=== PATIENT | female | born 1985 | race Caucasian/White ===

== ENCOUNTER 2017-04-01 17:00 | Emergency (ER) | payer MEDICAID ==
--- NOTE | 2017-04-01 17:17 | EDPHY ---
H & P Stated Complaint: M1 - Personal History LMP (Females 10-55): 1-7 Days Ago Current Tetanus Diphtheria and Acellular Pertussis (TDAP): Unsure - Medical/Surgical History Hx Asthma: No Hx Chronic Respiratory Disease: No Hx Diabetes: No Hx Cardiac Disease: No Hx Renal Disease: No Hx Cirrhosis: No Hx Alcoholism: Yes Hx HIV/AIDS: No Hx Splenectomy or Spleen Trauma: No Other PMH: alcoholism, unspecified dissociative disorder, delivered baby 5 wks ago (october 2015). PTSD - Social History Smoking Status: Former smoker Time Seen by Provider: 04/01/17 17:01 HPI/ROS: CHIEF COMPLAINT: Suicidal ideation, homicidal ideation HISTORY OF PRESENT ILLNESS: 32-year-old female psychiatric history notable for dissociative identity disorder, PTSD, alcohol dependence, arrives on M1 hold after endorsing suicidal and homicidal ideations, visual and auditory hallucinations, has not report for daily monitor medications. This is per the M1 report. In discussion with the patient she states that she is not experiencing suicidal or homicidal ideations. Does states that she has not felt taking medications been off them for some time. Admits to alcohol use most recently yesterday. Denies self-injury. Denies suicidal homicidal ideation. REVIEW OF SYSTEMS: A ten point review of systems was performed and is negative with the exception of the items mentioned in the HPI PAST MEDICAL & SURGICAL HISTORY: Dissociative identity disorder, PTSD, alcohol dependence SOCIAL HISTORY:alcohol use most recently yesterday PHYSICAL EXAM (Prior to examination, patient consented to physical exam, hands were washed and my usual and customary physical exam procedures followed) 1) GENERAL: Well-developed, well-nourished, alert and oriented. Appears to be in no acute distress. 2) HEAD: Normocephalic, atraumatic 3) HEENT: Pupils equal, round, reactive to light bilaterally. Sclera anicteric. 4) NECK: Full range of motion, no meningeal signs. 5) LUNGS: Clear auscultation bilaterally, no wheezes, no rhonchi, no retractions. 6) HEART: Regular rate and rhythm, no murmur, no heave, no gallop. 7) ABDOMEN: No guarding, no rebound, no focal tenderness, negative McBurney', 8) MUSCULOSKELETAL: signs of injury No peripheral edema or discoloration. 9) BACK: no visual or palpable abnormality. 10) SKIN: No rash, no petechiae. DIFFERENTIAL DIAGNOSIS: no particular include but limited to suicidal ideation , homicidal ideation, depression. (Kassie Christie) Constitutional: Initial Vital Signs Temperature (C) 37.1 C 04/01/17 17:00 Heart Rate 77 04/01/17 17:00 Respiratory Rate 18 04/01/17 17:00 Blood Pressure 120/77 04/01/17 17:00 O2 Sat (%) 90 L 04/01/17 17:00 O2 Delivery Mode Room Air Allergies/Adverse Reactions: No Known Allergies Allergy (Unverified 12/15/15 12:45) Home Medications: Medication Instructions Recorded ARIPiprazole [Abilify] 10 mg PO DAILY 12/15/15 FLUoxetine [Prozac] 20 mg PO DAILY 12/15/15 traZODone [traZODONE 100MG (*)] 100 mg PO 12/15/15 Haldol 04/01/17 Naltrexone HCl 04/01/17 clonIDINE 04/01/17 Medical Decision Making ED Course/Re-evaluation: 1:45am- I received sign out on this patient from BRYN Christie at approximately 12:00am. The patient has just completed mental health eval. Ileana would like to seek placement at ATU for the patient to be stablized on meds. The mental health team will start to look for placement. (Leann Lubin) Other Provider: Care assumed at 6:37 a.m. with plan for ATU placement. The patient will be transferred to [facility] for [inpatient psychiatric hospital bed] not available at this facility, in stable condition; accepting physician is Dr. kebede. (Oscar Bergman) - Data Points Laboratory Results: Laboratory Results 04/01/17 17:45 04/01/17 17:45 Medications Given: Discontinued Medications Haloperidol (Haldol) 0.5 mg PO ONCE ONE Stop: 04/02/17 01:50 Last Admin: 04/02/17 10:09 Dose: 0.5 mg Haloperidol (Haldol) 0.5 mg PO ONCE ONE Stop: 04/02/17 09:32 Last Admin: 04/02/17 10:12 Dose: 0.5 mg Lorazepam (Ativan) 1 mg PO EDNOW ONE Stop: 04/02/17 12:25 Last Admin: 04/02/17 12:32 Dose: 1 mg Departure - Departure Disposition: Other Psych, Not Nancy Clinical Impression: History of posttraumatic stress disorder (PTSD), Suicidal ideation Condition: Good Referrals: Patient,NotPresent [Unknown] - As per Instructions
[2017-04-01 17:54] LABS: % IMMATURE GRANULYOCYTES 0.3 % (0.0-1.1); ABSOLUTE IMMATURE GRANULOCYTES 0.03 10^3/uL (0.00-0.10); ADD DIFF? NO; ADD MORPH? NO; ADD SCAN? NO; ATYPICAL LYMPHOCYTE FLAG 0 (0-99); FRAGMENT RBC FLAG 0 (0-99); HEMATOCRIT 43.5 % (38.0-47.0); HEMOGLOBIN 15.1 g/dL (12.6-16.3); LEFT SHIFT FLG 0 (0-99); LIPEMIA HEMOLYSIS FLAG 90 (0-99); MEAN CELL HEMOGLOBIN 30.9 pg (27.9-34.1); MEAN CELL HEMOGLOBIN CONCENTR. 34.7 g/dL (32.4-36.7); PLATELET CLUMPS FLAG 0 (0-99); PLATELET COUNT 268 10^3/uL (150-400); RED BLOOD CELL COUNT 4.89 10^6/uL (4.18-5.33); RED CELL DISTRIBUTION WIDTH 12.9 % (11.5-15.2)
[2017-04-01 18:15] LABS: ANION GAP 14 mEq/L (8-16); CALCIUM 9.5 mg/dL (8.5-10.4); CARBON DIOXIDE 19 mEq/l (22-31); CHLORIDE 110 mEq/L (97-110); CREATININE 0.9 mg/dL (0.6-1.0); ETHANOL SERUM < 10 mg/dL (0-10); GLOMERULAR FILTRATION RATE > 60; GLUCOSE 73 mg/dL (70-100); POTASSIUM 3.7 mEq/L (3.5-5.2); SALICYLATE < 1.0 mg/dL (2.0-20.0); SODIUM 143 mEq/L (134-144)
[2017-04-02] MEDS: HALOPERIDOL 0.5 MG TAB PO ONE ×2 (02:32→10:09)
[2017-04-02] MEDS ORDERED: HALOPERIDOL 0.5 MG TAB PO ONE (09:31)
[2017-04-02] MEDS ORDERED: LORazepam 1 MG TAB PO ONE (12:24)
[2017-04-02 16:03] VITALS: PULSE 81
[2017-04-02] MEDS ORDERED: LORazepam 0.5 MG TAB PO ONE (16:47)
[2017-04-02 17:15] VITALS: BP 135/78; RESP 16; TEMP 97.7; O2SAT 98
== END 2017-04-02 17:13 ==
LOC: EDUNIT# → EEVIPCON 17:00
DX: R45.851 Suicidal ideations (principal); Z86.59 Personal history of other mental and behavioral disorders; Z87.891 Personal history of nicotine dependence
CPT/HCPCS: 80305; G0480

== ENCOUNTER 2017-05-14 13:36 | Emergency (ER) | payer MEDICAID ==
--- NOTE | 2017-05-14 15:13 | EDPHY ---
H & P Stated Complaint: BILATERAL FLANK PAIN, WORSE ON LEFT. RECENT UTI Time Seen by Provider: 05/14/17 15:13 - Personal History LMP (Females 10-55): 22-28 Days Ago Current Tetanus/Diphtheria Vaccine: Yes Current Tetanus Diphtheria and Acellular Pertussis (TDAP): Yes - Medical/Surgical History Hx Asthma: No Hx Chronic Respiratory Disease: No Hx Diabetes: No Hx Cardiac Disease: No Hx Renal Disease: No Hx Cirrhosis: No Hx Alcoholism: Yes Hx HIV/AIDS: No Hx Splenectomy or Spleen Trauma: No Other PMH: alcoholism, unspecified dissociative disorder, delivered baby 5 wks ago (october 2015). PTSD - Social History Smoking Status: Former smoker Constitutional: Initial Vital Signs Temperature (C) 36.9 C 05/14/17 13:54 Heart Rate 77 05/14/17 13:54 Respiratory Rate 18 05/14/17 13:54 Blood Pressure 159/107 H 05/14/17 13:54 O2 Sat (%) 96 05/14/17 13:54 O2 Delivery Mode Room Air Allergies/Adverse Reactions: No Known Allergies Allergy (Unverified 12/15/15 12:45) Home Medications: Medication Instructions Recorded ARIPiprazole [Abilify] 10 mg PO DAILY 12/15/15 FLUoxetine [Prozac] 20 mg PO DAILY 12/15/15 traZODone [traZODONE 100MG (*)] 100 mg PO 12/15/15 Haldol 04/01/17 Naltrexone HCl 04/01/17 clonIDINE 04/01/17 Cephalexin [Keflex (RX)] 500 mg PO TID #30 cap 05/14/17 Medical Decision Making - Diagnostics Imaging Results: Imaging Impressions Abdomen/Pelvis CT 05/14/17 15:53 Impression: 1. Moderate stool in the proximal colon. 2. 3.1-cm right breast mass. Diagnostic mammography and ultrasound are recommended for further evaluation if this has not been previously assessed. 3. Lung nodules measuring up to 4 mm. If the patient is a smoker or is high risk , unenhanced low dose chest CT for follow up in 12 months is considered optional. Otherwise, no further follow up is needed per Fleischner Society criteria. 4. Additional findings as above. Findings discussed with Minor Guerrero MD 05/14/2017, at 1702 hours. Attention: This CT examination is specifically designed to evaluate patients who are clinically suspected of having acute obstructive uropathy. This examination does not use radiographic contrast, and as such, provides only a limited evaluation of the abdomen, pelvis and retroperitoneum. If there is further clinical suspicion for pathologic conditions other than obstructive uropathy, a complete CT evaluation of the abdomen and pelvis utilizing intravenous and oral contrast should be considered. Imaging: Discussed imaging studies w/ call box wirer Radiologist, I viewed and interpreted images myself ED Course/Re-evaluation: CHIEF COMPLAINT: Left flank pain HISTORY OF PRESENT ILLNESS: The patient is a 32 y/o female who complains of left flank pain that radiates towards her groin. She has a history of 3 prior kidney stones, which all passed on their own. The pain today feels the same to her prior kidney stones. She believes she passed a small stone several days ago. Yesterday, she visited her doctor who found blood in her urine. Denies vomiting, nausea, chest pain, weakness, numbness or other pertinent REVIEW OF SYSTEMS: A 10 point review of systems was performed and is negative with the exception of the elements mentioned in the history of present illness. PHYSICAL EXAM: HR, BP, O2 Sat, RR. Temp noted General Appearance: Alert, well hydrated, appropriate, and non-toxic appearing. Head: Atraumatic without scalp tenderness or obvious injury Eyes: Pupils equal, round, reactive to light and accommodation, EOMI, no trauma , no injection. Ears: Clear bilaterally, no perforation, normal landmarks Nose: Atraumatic, no rhinorrhea, clear. Throat: Mucus membranes moist. Neck: Supple, nontender, no lymphadenopathy. Respiratory: No retractions, no distress, no wheezes, and no accessory muscle use. Lungs are clear to auscultation bilaterally. Cardiovascular: Regular rate and rhythm, no murmurs, rubs, or gallops. Good capillary refill all extremities. Gastrointestinal: Left flank pain radiating towards groin. Abdomen is soft, nontender, non-distended, no masses, no rebound, no guarding, no peritoneal signs. Musculoskeletal: Normal active ROM of all extremities, atraumatic. Neurological: Fine motor tremor. Alert, appropriate, and interactive. Non- focal neuro. Skin: No rashes, good turgor, no nodules on palpation. Past medical history: 3 Kidney stones, PTSD, alcoholism Past surgical history: Denies Family history: Noncontributory Social history: Lives in [place], , former smoker DIAGNOSTICS/PROCEDURES/CRITICAL CARE TIME: Abdominal CT: Negative for a kidney stone. There was an additional finding of a mass in her left breast that will need further outpatient workup. DIFFERENTIAL DIAGNOSIS: The differential diagnosis for the patient's abdominal pain included but was not limited to ovarian cyst, pelvic inflammatory disease, ovarian torsion, urinary tract infection, ectopic , cholecystitis, and appendicitis. MEDICAL DECISION MAKING: The patient is a 32 y/o female who presents with left abdominal pain that radiates towards her groin. She also has a fine motor tremor most likely secondary to her anti-psychotics. Plan on abdominal CT, labs, IV, 1L NS IV, 0.5mgIV Dilaudid, 30mg IV Ketoralac, and 4mg IV Zofran. 1810: Reassessed patient and discussed laboratory and imaging findings. She will be prescribed Keflex for her UTI. I have recommended that she follows up with her primary care provider regarding the mass in her left breast. Return precautions discussed; patient is comfortable with this plan. - Data Points Laboratory Results: Laboratory Results 05/14/17 16:05 05/14/17 16:05 05/14/17 05/14/17 05/14/17 17:20 16:05 16:05 WBC RBC Hgb Hct MCV MCH MCHC RDW Plt Count MPV Neut % (Auto) Lymph % (Auto) [place]ell % (Auto) Eos % (Auto) Baso % (Auto) Nucleat RBC Rel Count Absolute Neuts (auto) Absolute Lymphs (auto) Absolute Monos (auto) Absolute Eos (auto) Absolute Basos (auto) Absolute Nucleated RBC Immature Gran % Immature Gran # Sodium 141 mEq/L mEq/L (134-144) Potassium 3.8 mEq/L mEq/L (3.5-5.2) Chloride 104 mEq/L mEq/L (97-110) Carbon Dioxide 23 mEq/l mEq/l (22-31) Anion Gap 14 mEq/L mEq/L (8-16) BUN 14 mg/dL mg/dL (7-23) Creatinine 1.1 mg/dL H mg/dL (0.6-1.0) Estimated GFR 57 Glucose 85 mg/dL mg/dL (70-100) Calcium 10.0 mg/dL mg/dL (8.5-10.4) Beta HCG, Qual NEGATIVE Urine Color PALE YELLOW Urine Appearance CLEAR Urine pH 6.0 (5.0-7.5) Ur Specific [place] 1.006 (1.002-1.030) Urine Protein NEGATIVE (NEGATIVE) Urine Ketones NEGATIVE (NEGATIVE) Urine Blood 1+ H (NEGATIVE) Urine Nitrate NEGATIVE (NEGATIVE) Urine Bilirubin NEGATIVE (NEGATIVE) Urine Urobilinogen NEGATIVE EU EU (0.2-1.0) Ur Leukocyte Esterase 2+ H (NEGATIVE) Urine RBC 3-5 /hpf H /hpf (0-3) Urine WBC 15-25 /hpf H /hpf (0-3) Ur Epithelial Cells TRACE /lpf /lpf (NONE-1+) Urine Bacteria TRACE /hpf H /hpf (NONE SEEN) Urine Glucose NEGATIVE (NEGATIVE) 05/14/17 16:05 WBC 9.03 10^3/uL 10^3/uL (3.80-9.50) RBC 5.29 10^6/uL 10^6/uL (4.18-5.33) Hgb 16.3 g/dL g/dL (12.6-16.3) Hct 47.2 % H % (38.0-47.0) MCV 89.2 fL fL (81.5-99.8) MCH 30.8 pg pg (27.9-34.1) MCHC 34.5 g/dL g/dL (32.4-36.7) RDW 12.8 % % (11.5-15.2) Plt Count 258 10^3/uL 10^3/uL (150-400) MPV 10.3 fL fL (8.7-11.7) Neut % (Auto) 68.3 % % (39.3-74.2) Lymph % (Auto) 21.8 % % (15.0-45.0) Cabell % (Auto) 6.4 % % (4.5-13.0) Eos % (Auto) 2.3 % % (0.6-7.6) Baso % (Auto) 0.9 % % (0.3-1.7) Nucleat RBC Rel Count 0.0 % % (0.0-0.2) Absolute Neuts (auto) 6.16 10^3/uL 10^3/uL (1.70-6.50) Absolute Lymphs (auto) 1.97 10^3/uL 10^3/uL (1.00-3.00) Absolute Monos (auto) 0.58 10^3/uL 10^3/uL (0.30-0.80) Absolute Eos (auto) 0.21 10^3/uL 10^3/uL (0.03-0.40) Absolute Basos (auto) 0.08 10^3/uL 10^3/uL (0.02-0.10) Absolute Nucleated RBC 0.00 10^3/uL 10^3/uL (0-0.01) Immature Gran % 0.3 % % (0.0-1.1) Immature Gran # 0.03 10^3/uL 10^3/uL (0.00-0.10) Sodium Potassium Chloride Carbon Dioxide Anion Gap BUN Creatinine Estimated GFR Glucose Calcium Beta HCG, Qual Urine Color Urine Appearance Urine pH Ur Specific [place] Urine Protein Urine Ketones Urine Blood Urine Nitrate Urine Bilirubin Urine Urobilinogen Ur Leukocyte Esterase Urine RBC Urine WBC Ur Epithelial Cells Urine Bacteria Urine Glucose Medications Given: Discontinued Medications Hydromorphone HCl (Dilaudid) 1 mg IVP EDNOW ONE Stop: 05/14/17 15:28 Last Admin: 05/14/17 16:09 Dose: 1 mg Sodium Chloride (Ns) 1,000 mls @ 0 mls/hr IV EDNOW ONE; Wide Open PRN Reason: Protocol Stop: 05/14/17 15:28 Last Admin: 05/14/17 16:06 Dose: 1,000 mls Ketorolac Tromethamine (Toradol) 30 mg IVP EDNOW ONE Stop: 05/14/17 15:28 Last Admin: 05/14/17 16:07 Dose: 30 mg Ondansetron HCl (Zofran) 4 mg IVP EDNOW ONE Stop: 05/14/17 15:28 Last Admin: 05/14/17 16:07 Dose: 4 mg Departure - Departure Disposition: Home, Routine, Self-Care Clinical Impression: Urinary tract infection Qualifiers: Urinary tract infection type: site unspecified Hematuria presence: with hematuria Qualified Code(s): N39.0 - Urinary tract infection, site not specified Condition: Good Instructions: Cephalexin (By mouth), Urinary Tract Infection in Women (ED) Additional Instructions: 1. Take Keflex as prescribed. 2. Followup with your primary care provider within one week. You should also follow up with your primary care provider regarding the mass found in your left breast. 3. Return to the emergency apartment for fever, severe pain, inability to urinate or other concerns. Referrals: Kennedy Seymour MD [Medical Doctor] - As per Instructions Constantine Parikh MD [[facility] Primary Care Provider] - As per Instructions Prescriptions: Cephalexin [Keflex (RX)] 500 mg PO TID #30 cap Report Scribed for: Minor Guerrero Report Scribed by: Odessa Akers Date of Report: 05/14/17 Time of Report: 15:23
[2017-05-14] MEDS ORDERED: KETOROLAC 30 MG/1 ML SDV IVP ONE (15:27)
[2017-05-14] MEDS ORDERED: HYDROmorphONE/DILAUDID 1 MG/ML INJ IVP ONE (15:27)
[2017-05-14] MEDS ORDERED: ONDANSETRON 4 MG/2 ML VIAL IVP ONE (15:27)
[2017-05-14] MEDS ORDERED: NS 1,000 ML IV ONE (15:27)
[2017-05-14 16:18] LABS: % IMMATURE GRANULYOCYTES 0.3 % (0.0-1.1); ABSOLUTE IMMATURE GRANULOCYTES 0.03 10^3/uL (0.00-0.10); ADD DIFF? NO; ADD MORPH? NO; ADD SCAN? NO; ATYPICAL LYMPHOCYTE FLAG 10 (0-99); FRAGMENT RBC FLAG 0 (0-99); HEMATOCRIT 47.2 % (38.0-47.0); HEMOGLOBIN 16.3 g/dL (12.6-16.3); LEFT SHIFT FLG 0 (0-99); LIPEMIA HEMOLYSIS FLAG 90 (0-99); MEAN CELL HEMOGLOBIN 30.8 pg (27.9-34.1); MEAN CELL HEMOGLOBIN CONCENTR. 34.5 g/dL (32.4-36.7); MEAN CELL VOLUME 89.2 fL (81.5-99.8); MEAN PLATELET VOLUME 10.3 fL (8.7-11.7); PLATELET CLUMPS FLAG 0 (0-99); PLATELET COUNT 258 10^3/uL (150-400); RED BLOOD CELL COUNT 5.29 10^6/uL (4.18-5.33); RED CELL DISTRIBUTION WIDTH 12.8 % (11.5-15.2)
[2017-05-14 16:44] LABS: ANION GAP 14 mEq/L (8-16); CARBON DIOXIDE 23 mEq/l (22-31); CHLORIDE 104 mEq/L (97-110); CREATININE 1.1 mg/dL (0.6-1.0); GLOMERULAR FILTRATION RATE 57; GLUCOSE 85 mg/dL (70-100); POTASSIUM 3.8 mEq/L (3.5-5.2); SODIUM 141 mEq/L (134-144)
[2017-05-14 17:28] VITALS: RESP 16
[2017-05-14 17:33] LABS: COLOR PALE YELLOW; LEUKOCYTE ESTERASE,URINE 2+ (NEGATIVE); NITRITE,URINE NEGATIVE (NEGATIVE)
[2017-05-14 17:45] LABS: BACTERIA TRACE /hpf (NONE SEEN); WBC,URINE 15-25 /hpf (0-3)
[2017-05-14] MEDS ORDERED: CEPHALEXIN 500 MG CAP PO ONE (18:07)
[2017-05-14] MEDS ORDERED: IBUPROFEN 600 MG TAB PO ONE ×2 (18:27→18:29)
[2017-05-14 18:56] VITALS: BP 110/74; PULSE 69; TEMP 97.9; O2SAT 96
== END 2017-05-14 18:56 | disposition home or self-care (01) ==
DX: N39.0 Urinary tract infection, site not specified (principal); B96.89 Other specified bacterial agents as the cause of diseases classified elsewhere; E86.9 Volume depletion, unspecified; Z87.891 Personal history of nicotine dependence
CPT/HCPCS: 96374; J1170; J1885; J2405